=== PATIENT | male | born 1975 | race Caucasian/White ===

== ENCOUNTER 2018-07-19 01:13 | Observation (INO) ==
[2018-07-19] MEDS ORDERED: Sod Chloride 0.9% Inj 1,000 ML IV.CONT SCH (02:00)
[2018-07-19 02:42] LABS: Baso # (Auto) 0.3 th/mm3 (0.0-0.2); Baso % (Auto) 3.4 % (0.0-2.0); Eos # (Auto) 0.3 th/mm3 (0.0-0.4); Eos % (Auto) 3.2 % (0.0-4.0); Hematocrit 36.9 % (39.0-51.0); Hemoglobin 12.9 gm/dL (13.0-17.0); Lymph # (Auto) 1.9 th/mm3 (1.0-4.8); Lymph % (Auto) 20.1 % (9.0-44.0); Mean Corpuscular HGB Conc 34.9 % (32.0-36.0); Mean Corpuscular Hemoglobin 37.3 pg (27.0-34.0); Mean Corpuscular Volume 106.7 fL (80.0-100.0); Mean Platelet Volume 11.1 fL (7.0-11.0); Mono # (Auto) 1.4 th/mm3 (0.0-0.9); Mono % (Auto) 14.6 % (0.0-8.0); Neut # (Auto) 5.5 th/mm3 (1.8-7.7); Neut % (Auto) 58.7 % (16.0-70.0); Platelet Count 439 th/mm3 (150-450); Red Blood Count 3.46 mil/mm3 (4.50-5.90); Red Cell Distribution Width 15.4 % (11.6-17.2); White Blood Count 9.4 th/mm3 (4.0-11.0)
[2018-07-19 02:48] LABS: Activated Partial Thrombo Time 36.3 sec (23.4-31.7); INR 1.4 Ratio; Prothrombin Time 14.5 sec (9.8-11.6)
[2018-07-19 02:51] LABS: Alanine Aminotransferase 54 U/L (12-78); Albumin 2.9 g/dL (3.4-5.0); Anion Gap 7 meq/L (5-15); Aspartate Aminotransferase 53 U/L (15-37); Blood Urea Nitrogen 14 mg/dL (7-18); Calcium 8.4 mg/dL (8.5-10.1); Carbon Dioxide 26.3 meq/L (21.0-32.0); Chloride 108 meq/L (98-107); Glomerular Filtration Rate 72 mL/min (>89); Glucose,Random 104 mg/dL (74-106); Lipase 215 U/L (73-393); Magnesium 1.8 mg/dL (1.5-2.5); Potassium 3.9 meq/L (3.5-5.1); Sodium 141 meq/L (136-145)
--- NOTE | 2018-07-19 02:53 | ED ---
HPI General Chief complaint: GI Bleed Stated complaint: bleeding Time Seen by Provider: 07/19/18 01:41 Source: patient Limitations: no limitations History of Present Illness HPI narrative: The patient is a 43 year old male who presents to the [facility] emergency department with a history of moving his bowels earlier today and noticing blood in his stool. The patient reports that he is currently anticoagulated on Xarelto due to a recent diagnosis of pulmonary embolism. He was told that if he noticed any bleeding he should report to the emergency department. He reports that he had one other bowel movement just prior to arrival and there seemed to be more blood and that bowel movement, therefore he decided to come in for evaluation. He denies having any abdominal pain. He denies having any lightheaded sensation or shortness of breath. He reports that his stool was somewhat hard earlier. He denies having any rectal pain currently. He denies having any rectal swelling or hemorrhoids that he is noticed. 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 He reports that he has not drank any alcohol since he was discharged from the hospital. He reports that earlier in the day he did have one episode of vomiting, however he denies having any nausea or vomiting since then. He denies having any blood in his emesis. He denies having any hematuria. On review of systems otherwise, he denies having any known recent fevers, cough, congestion, neck pain, other urinary symptoms, or neurologic symptoms. Related Data Home Medications Medication Instructions Recorded Confirmed rivaroxaban [Xarelto] 15 mg PO DAILY 07/19/18 07/19/18 Previous Rx's Medication Instructions Recorded metoprolol tartrate 12.5 mg PO BID #60 tab 07/15/18 pantoprazole 40 mg PO BID #60 tab 07/15/18 Allergies Allergy/AdvReac Type Severity Reaction Status Date / Time phenobarbital Allergy Unknown to Verified 07/19/18 01:31 patient. Review of Systems ROS: all other systems reviewed are negative [facility] Medical History Medical History GERD (gastroesophageal reflux disease) (Acute) Hypertension (Acute) Pulmonary embolism (Acute) Surgical History Surgical History H/O hernia repair (Acute) History of kidney surgery (Acute) H/O splenectomy (Acute) S/P appy (Acute) Family History Family History Mother Diabetes mellitus Father Healthy adult Social History Social History Substance History: No History of Abuse Second Hand Smoke Exposure: Yes Smoking Status: Current every day smoker Tobacco Type: Cigarettes How Often Do You Have a Drink Containing Alcohol: Monthly or less Recent Travel in [facility] within the Last 8 Weeks: No Recent Out of Country Travel within the Last 8 Weeks: No Immunization History Tetanus Immunization: Unsure Exam Const General: cooperative, no acute distress and well developed Nutritional Appearance: well nourished Orientation: alert, awake and oriented x3 HENMT Head: normocephalic and atraumatic Nose: no nasal discharge and no epistaxis Mouth: moist mucous membranes Throat: posterior oropharynx normal and uvula midline Eyes Sclera: normal sclerae Pupils: PERRL Neck Neck: no meningeal signs, trachea midline and no JVD Resp Effort & Inspection: no use of accessory muscles Auscultation: clear to auscultation bilaterally Cardio Rate: regular rate Rhythm: regular rhythm Heart Sounds: no murmurs GI Inspection: non-distended Palpation: soft, no hepatosplenomegaly, no guarding, not rigid and nontender Auscultation: normal bowel sounds Rectal Exam: visual inspection normal (No hemorrhoid or anal fissure noted.), heme positive stool and No tenderness Back/Spine/Pelvis Back: no CVA tenderness Skin General: dry skin (warm) Neuro General: alert, awake, oriented x3 and other (Grossly nonfocal) Speech: speech normal Motor: no movement abnormalities noted Extrem General: normal to inspection, no calf tenderness, no clubbing, no cyanosis and no edema Psych Mood: congruent mood Affect: normal affect Judgment: judgment good Course Initial Documented Vital Signs Temperature 98.3 F 07/19/18 01:27 Pulse Rate 95 H 07/19/18 01:27 Respiratory Rate 16 07/19/18 01:27 Blood Pressure 146/85 H 07/19/18 01:27 Pulse Oximetry 98 07/19/18 01:27 Last Documented Vital Signs Temperature 98.4 F 07/19/18 16:07 Pulse Rate 62 07/19/18 16:07 Respiratory Rate 18 07/19/18 16:07 Blood Pressure 138/83 07/19/18 16:07 Pulse Oximetry 97 07/19/18 16:07 Medical Decision Making MDM Narrative Medical decision making narrative: During the course of the patient's emergency department visit, the patient's history, examination, and differential diagnosis were reviewed with the patient. The patient was placed on a library monitor with oximetry and frequent blood pressure monitoring. The patient had IV access obtained and blood work sent for analysis. A diagnostic evaluation was started regarding the patient's reported bright red blood per rectum. The patient was initially provided normal saline IV fluids at 125 mL/h. The patient's diagnostic studies are remarkable for a white count of 9.4, hemoglobin 12.9 which is stable compared to his last hemoglobin of 12.8, platelets 439 with 14.6 monocytes, PT is 14.5, INR 1.4, PTT 36.3, chemistries remarkable for a chloride of 108, GFR of 72, calcium 8.4, AST 53, ammonia levels within normal limits at 13, albumin 2.9, lipase within normal limits. The patient had a Hemoccult of the stool that was Hemoccult positive. The patient's case including history, pertinent physical examination findings, and laboratory studies were discussed with Dr. Garcia. It was [facility] The patient's results were discussed with the patient, including the plan of care. I explained that further testing and/ or monitoring is indicated based on the patient's history, examination, and/ or laboratory findings. Therefore, I recommended admission for additional evaluation. The patient expressed understanding and was agreeable with this plan. The patient was admitted to the hospital in guarded condition and sent to a bed under the care of the [facility] service. Medical Screen Exam Complete: Yes Emergency Medical Condition: Yes Differential Diagnosis Differential Diagnosis: Hemorrhoidal bleed, versus anal fissure, versus diverticulosis, versus variceal bleed, versus hemorrhagic esophagitis, versus peptic ulcer bleed, versus AVM Medical Records Medical records reviewed: Yes I reviewed the patient's medical records. Lab Data Lab results reviewed: Yes I reviewed the patient's lab results. Result diagrams: 07/19/18 18:39 07/19/18 02:25 Lab Results 07/19/18 07/19/18 07/19/18 Range/Units 02:25 02:25 02:25 WBC 9.4 (4.0-11.0) th/mm3 RBC 3.46 L (4.50-5.90) mil/mm3 Hgb 12.9 L (13.0-17.0) gm/dL Hct 36.9 L (39.0-51.0) % MCV 106.7 H (80.0-100.0) fL MCH 37.3 H (27.0-34.0) pg MCHC 34.9 (32.0-36.0) % RDW 15.4 (11.6-17.2) % Plt Count 439 D (150-450) th/mm3 MPV 11.1 H (7.0-11.0) fL Neut % (Auto) 58.7 (16.0-70.0) % Lymph % (Auto) 20.1 (9.0-44.0) % Stone % (Auto) 14.6 H (0.0-8.0) % Eos % (Auto) 3.2 (0.0-4.0) % Baso % (Auto) 3.4 H (0.0-2.0) % Neut # (Auto) 5.5 (1.8-7.7) th/mm3 Lymph # (Auto) 1.9 (1.0-4.8) th/mm3 Stone # (Auto) 1.4 H (0.0-0.9) th/mm3 Eos # (Auto) 0.3 (0.0-0.4) th/mm3 Baso # (Auto) 0.3 H (0.0-0.2) th/mm3 WBC Differential . Differential Comment Auto diff final PT 14.5 H (9.8-11.6) sec INR 1.4 Ratio APTT 36.3 H (23.4-31.7) sec Sodium 141 (136-145) meq/L Potassium 3.9 (3.5-5.1) meq/L Chloride 108 H (98-107) meq/L Carbon Dioxide 26.3 (21.0-32.0) meq/L Anion Gap 7 (5-15) meq/L BUN 14 (7-18) mg/dL Creatinine 1.11 (0.60-1.30) mg/dL Estimated GFR 72 L (>89) mL/min Random Glucose 104 (74-106) mg/dL Calcium 8.4 L (8.5-10.1) mg/dL Magnesium 1.8 (1.5-2.5) mg/dL Total Bilirubin 1.1 H (0.2-1.0) mg/dL AST 53 H (15-37) U/L ALT 54 (12-78) U/L Alkaline Phosphatase 110 (45-117) U/L Ammonia (11-32) mcmol/L Troponin I Less than 0.02 L (0.02-0.05) ng/mL Total Protein 7.4 D (6.4-8.2) g/dL Albumin 2.9 L (3.4-5.0) g/dL Lipase 215 (73-393) U/L Blood Type Antibody Screen 07/19/18 07/19/18 07/19/18 Range/Units 02:25 02:25 11:51 WBC (4.0-11.0) th/mm3 RBC (4.50-5.90) mil/mm3 Hgb 11.9 L (13.0-17.0) gm/dL Hct (39.0-51.0) % MCV (80.0-100.0) fL MCH (27.0-34.0) pg MCHC (32.0-36.0) % RDW (11.6-17.2) % Plt Count (150-450) th/mm3 MPV (7.0-11.0) fL Neut % (Auto) (16.0-70.0) % Lymph % (Auto) (9.0-44.0) % Stone % (Auto) (0.0-8.0) % Eos % (Auto) (0.0-4.0) % Baso % (Auto) (0.0-2.0) % Neut # (Auto) (1.8-7.7) th/mm3 Lymph # (Auto) (1.0-4.8) th/mm3 Stone # (Auto) (0.0-0.9) th/mm3 Eos # (Auto) (0.0-0.4) th/mm3 Baso # (Auto) (0.0-0.2) th/mm3 WBC Differential Differential Comment PT (9.8-11.6) sec INR Ratio APTT (23.4-31.7) sec Sodium (136-145) meq/L Potassium (3.5-5.1) meq/L Chloride (98-107) meq/L Carbon Dioxide (21.0-32.0) meq/L Anion Gap (5-15) meq/L BUN (7-18) mg/dL Creatinine (0.60-1.30) mg/dL Estimated GFR (>89) mL/min Random Glucose (74-106) mg/dL Calcium (8.5-10.1) mg/dL Magnesium (1.5-2.5) mg/dL Total Bilirubin (0.2-1.0) mg/dL AST (15-37) U/L ALT (12-78) U/L Alkaline Phosphatase (45-117) U/L Ammonia 13 (11-32) mcmol/L Troponin I (0.02-0.05) ng/mL Total Protein (6.4-8.2) g/dL Albumin (3.4-5.0) g/dL Lipase (73-393) U/L Blood Type A Negative Antibody Screen Negative 07/19/18 07/19/18 07/19/18 Range/Units 11:51 15:01 18:39 WBC (4.0-11.0) th/mm3 RBC (4.50-5.90) mil/mm3 Hgb 11.9 L 12.5 L 12.2 L (13.0-17.0) gm/dL Hct 34.5 L 36.0 L (39.0-51.0) % MCV (80.0-100.0) fL MCH (27.0-34.0) pg MCHC (32.0-36.0) % RDW (11.6-17.2) % Plt Count (150-450) th/mm3 MPV (7.0-11.0) fL Neut % (Auto) (16.0-70.0) % Lymph % (Auto) (9.0-44.0) % Stone % (Auto) (0.0-8.0) % Eos % (Auto) (0.0-4.0) % Baso % (Auto) (0.0-2.0) % Neut # (Auto) (1.8-7.7) th/mm3 Lymph # (Auto) (1.0-4.8) th/mm3 Stone # (Auto) (0.0-0.9) th/mm3 Eos # (Auto) (0.0-0.4) th/mm3 Baso # (Auto) (0.0-0.2) th/mm3 WBC Differential Differential Comment PT (9.8-11.6) sec INR Ratio APTT (23.4-31.7) sec Sodium (136-145) meq/L Potassium (3.5-5.1) meq/L Chloride (98-107) meq/L Carbon Dioxide (21.0-32.0) meq/L Anion Gap (5-15) meq/L BUN (7-18) mg/dL Creatinine (0.60-1.30) mg/dL Estimated GFR (>89) mL/min Random Glucose (74-106) mg/dL Calcium (8.5-10.1) mg/dL Magnesium (1.5-2.5) mg/dL Total Bilirubin (0.2-1.0) mg/dL AST (15-37) U/L ALT (12-78) U/L Alkaline Phosphatase (45-117) U/L Ammonia (11-32) mcmol/L Troponin I (0.02-0.05) ng/mL Total Protein (6.4-8.2) g/dL Albumin (3.4-5.0) g/dL Lipase (73-393) U/L Blood Type Antibody Screen Discharge Plan Discharge Disposition Patient Disposition: ED Admit(ED Internal Use Only) Discharge Order Discharge Orders: ED Use Only Admit Order (Routine); Ordered 07/19/18 Ordered By: Desire Chan Discharge Details Diagnosis: GI bleed Physicians Team ED Provider: Desire Chan Primary Care Provider: Primary Care Rhianna,Claudia Attending Provider: Agapito Gutierrez Other Providers: Hussain Ha V Discharge Interventions Interventions: ED Discharge Assessment Last Done: 07/19/18 07:34 Status ED Status: Left Department Discharge Information Discharge Date/Time: 07/19/18 07:30
[2018-07-19 02:55] LABS: Alkaline Phosphatase 110 U/L (45-117); Total Protein 7.4 g/dL (6.4-8.2)
[2018-07-19] MEDS ORDERED: Pantoprazole Inj 80 MG in Sodium Chlor 0.9% Inj 35 ML IV.SIG ONE (03:53)
[2018-07-19] MEDS ORDERED: Pantoprazole Inj 80 MG in Sodium Chlor 0.9% Inj 100 ML IV.CONT SCH (04:00)
[2018-07-19] MEDS ORDERED: Acetaminophen 325 MG Tablet PO PRN (04:17)
[2018-07-19] MEDS ORDERED: Bisacodyl 10 MG Supp RECTAL PRN (04:17)
[2018-07-19] MEDS: Sod Chloride 0.9% Inj 1,000 ML IV.CONT SCH ×2 (05:12→17:10)
--- NOTE | 2018-07-19 06:57 | P.HPIM ---
History of Present Illness Primary Care Physician: No Primary Care Physician Chief Complaint: Rectal bleeding History of Present Illness: 43-year-old male with a history of traumatic splenectomy, 7 beer per day drinker, alcohol induced liver injury with small esophageal varices seen during last admission, smoker [id number] history, recently diagnosed with atrial fibrillation as well as acute pulmonary embolism on 07/05, discharged on 07/15 on Xarelto. Patient presents today with a 1 day history of several episodes of bright red blood per rectum. Patient says he is otherwise feeling all right. He denies any history of hemorrhoids in the past. Denies any abdominal.. Denies nausea or vomiting. Patient is taking his Xarelto as directed with most recent dose on 07/18. Review of Systems Review of Systems: all other systems reviewed are negative [facility] Medical History Medical History GERD (gastroesophageal reflux disease) (Acute) Hypertension (Acute) Pulmonary embolism (Acute) Surgical History Surgical History H/O hernia repair (Acute) History of kidney surgery (Acute) H/O splenectomy (Acute) S/P appy (Acute) Family History Family History Mother Diabetes mellitus Father Healthy adult Social History Social History Substance History: No History of Abuse Second Hand Smoke Exposure: Yes Smoking Status: Current every day smoker Tobacco Type: Cigarettes How Often Do You Have a Drink Containing Alcohol: Monthly or less Recent Travel in [facility] within the Last 8 Weeks: No Recent Out of Country Travel within the Last 8 Weeks: No Immunization History Tetanus Immunization: Unsure Medications and Allergies Allergies Allergy/AdvReac Type Severity Reaction Status Date / Time phenobarbital Allergy Unknown to Verified 07/19/18 01:31 patient. Home Medications Medication Instructions Recorded Confirmed Type rivaroxaban [Xarelto] 15 mg PO DAILY 07/19/18 07/19/18 History Active Medications: Active Medications Acetaminophen (Tylenol) 650 mg PO Q4H PRN PRN Reason: Temp > 100.4 Al Hydroxide/Mg Hydroxide (Milk Of Magnesia Liq) 30 ml PO Q12H PRN PRN Reason: Mild Constipation Bisacodyl (Dulcolax Supp) 10 mg RECTAL DAILY PRN PRN Reason: SEVERE CONSITIPATION Pantoprazole Sodium 80 mg/ (Sodium Chloride) 100 mls @ 10 mls/hr IV.CONT CONT [facility] Last Admin: 07/19/18 04:16 Dose: 10 mls/hr Sodium Chloride (Ns Inj) 1,000 mls @ 100 mls/hr IV.CONT .Q10H [facility] Last Admin: 07/19/18 05:12 Dose: 100 mls/hr Lactulose (Lactulose Liq) 30 ml PO DAILY PRN PRN Reason: SEVERE CONSITIPATION Ondansetron HCl (Zofran Inj) 4 mg IV.PUSH Q6H PRN PRN Reason: NAUSEA OR VOMITING Sennosides (Senokot) 17.2 mg PO Q12H PRN PRN Reason: Moderate Constipation Sodium Chloride (Ns Flush) 2 ml IV.FLUSH PRN PRN PRN Reason: FLUSH AFTER USING IV ACCESS Sodium Chloride (Ns Flush) 2 ml IV.FLUSH BID WARREN Sodium Chloride (Ns Flush) 2 ml IV.FLUSH PRN PRN PRN Reason: FLUSH AFTER USING IV ACCESS Physical Exam Vital signs: Vital Signs 07/19/18 01:27 07/19/18 01:31 07/19/18 02:02 Temperature 98.3 F Pulse Rate 95 H 99 H Respiratory Rate 16 20 Blood Pressure 146/85 H 130/79 Pulse Oximetry 98 99 98 07/19/18 05:11 07/19/18 05:31 Temperature 98.2 F Pulse Rate 65 Respiratory Rate 18 20 Blood Pressure 117/64 Pulse Oximetry 98 Intake & Output 07/18/18 07/18/18 07/19/18 06:59 18:59 06:59 Intake Total 1035 / 1035 Balance 1035 / 1035 Weight 104.326 kg Intake: IV 1035 / 1035 NS Inj 1,000 ML @ 125 mls/hr IV 1000 / 1000 .CONT .Q8H [facility] Rx#:[id number] Protonix Inj 80 MG In NS Inj 35 35 / 35 ML @ 420 mls/hr IV.SIG BOLUS ONE Rx#:[id number] Narrative: GENERAL: Patient lying in bed. Appears comfortable. Alert and oriented x3. SKIN: Warm and dry. HEAD: Atraumatic. Normocephalic. EYES: Pupils equal and round. No scleral icterus. No injection or drainage. ENT: No nasal bleeding or discharge. Mucous membranes pink and moist. NECK: Trachea midline. No JVD. CARDIOVASCULAR: Regular rate and rhythm. RESPIRATORY: No accessory muscle use. Clear to auscultation. Breath sounds equal bilaterally. GASTROINTESTINAL: Abdomen soft, non-tender, nondistended. Hepatic and splenic margins not palpable. MUSCULOSKELETAL: Extremities without clubbing, cyanosis, or edema. No obvious deformities. NEUROLOGICAL: Awake and alert. No obvious cranial nerve deficits. Motor grossly within normal limits. Five out of 5 muscle strength in the arms and legs. Normal speech. PSYCHIATRIC: Appropriate mood and affect; insight and judgment normal. Results Labs CBC & Chem 7: 07/19/18 02:25 07/19/18 02:25 Caprini VTE Risk Assessment Caparabella VTE Risk Assessment: Moderate/High Risk (score >= 2) VTE Pharmacological Exception Reason: Active bleeding Caprini Risk Assessment Model: Point Value = 1 Point Value = 2 Point Value = 3 Point Value = 5 Age 41-60 Minor surgery BMI > 25 kg/m2 Swollen legs Varicose veins or History of unexplained or recurrent spontaneous Oral contraceptives or hormone replacement Sepsis (< 1 month) Serious lung disease, including pneumonia (< 1 month) Abnormal pulmonary function Acute myocardial infarction Congestive heart failure (< 1 month) History of inflammatory bowel disease Medical patient at bed rest Age 61-74 Arthroscopic surgery Major open surgery (> 45 min) Laparoscopic surgery (> 45 min) Malignancy Confined to bed (> 72 hours) Immobilizing plaster cast Central venous access Age >= 75 History of VTE Family history of VTE Factor V Leiden Prothrombin [id number] Lupus anticoagulant Anticardiolipin antibodies Elevated serum homocysteine Heparin-induced thrombocytopenia Other congenital or acquired thrombophilia Stroke (< 1 month) Elective arthroplasty Hip, pelvis, or leg fracture Acute spinal cord injury (< 1 month) Prophylaxis Regimen: Total Risk Factor Score Risk Level Prophylaxis Regimen 0-1 Low Early ambulation 2 Moderate Order ONE of the following: *Sequential Compression Device (SCD) *Heparin 5000 units SQ BID 3-4 Higher Order ONE of the following medications: *Heparin 5000 units SQ TID *Enoxaparin/Lovenox 40 mg SQ daily (WT < 150 kg, CrCl > 30 mL/min) *Enoxaparin/Lovenox 30 mg SQ daily (WT < 150 kg, CrCl > 10-29 mL/min) *Enoxaparin/Lovenox 30 mg SQ BID (WT < 150 kg, CrCl > 30 mL/min) AND/OR *Sequential Compression Device (SCD) 5 or more Highest Order ONE of the following medications: *Heparin 5000 units SQ TID (Preferred with Epidurals) *Enoxaparin/Lovenox 40 mg SQ daily (WT < 150 kg, CrCl > 30 mL/min) *Enoxaparin/Lovenox 30 mg SQ daily (WT < 150 kg, CrCl > 10-29 mL/min) *Enoxaparin/Lovenox 30 mg SQ BID (WT < 150 kg, CrCl > 30 mL/min) AND *Sequential Compression Device (SCD) Assessment and Plan Plan //Acute lower GI bleed. //History of esophageal varices. //Alcoholic cirrhosis. -Patient denies any alcohol use since before admission. -Hemoglobin stable from last admission 12.9. Patient started on PPI drip in the ER. Trend hemoglobin. Consult GI. Suspect this is hemorrhoidal bleed. //Recent pulmonary embolism, as well as paroxysmal atrial fibrillation. Will hold off on Xarelto for now. Will need to restart within the next 48 hours due to recent diagnosis of PE. //Paroxysmal atrial fibrillation. Continue metoprolol. Hold off on anticoagulation. //Tobacco abuse. Cessation counseling provided. - Discussed Condition With: Patient, nurse, ED physician.
--- NOTE | 2018-07-19 09:58 | P.CONGI ---
History of Present Illness Consult date: 07/19/18 Consult reason: GI bleed on Xarelto Bright red blood per rectum Chief complaint: GI Bleed on Xarelto History of Present Illness: Patient is a pleasant 43-year-old male with past medical history significant for traumatic splenectomy, GERD, hypertension and pulmonary embolism. Patient also has medical history of atrial fibrillation and esophageal varices. Surgical history includes hernia repair, splenectomy and appendectomy. Patient presented to [facility] emergency room with report of 1 day history of 7 episodes of bright red blood per rectum. Patient states that he has no histories of hemorrhoids. Denies abdominal pain nausea vomiting. Patient denies diarrhea or constipation. States he has a soft stool daily. Of note, patient recently discharged home on 07/15/2018 on Xarelto for atrial fibrillation as well as acute pulmonary embolism diagnosed on 07/05/2018. Upon arrival, hemoglobin 12.9 hematocrit 36.9. Upon consultation, patient endorses smoking half a pack of cigarettes per day and states he drinks 7-8 beers daily but quit last week. Xarelto currently on hold. Our service has been consulted to evaluate patient for lower GI bleeding. Patient denies past history of having had colonoscopy but does endorse history of EGD revealing esophageal varices. Last EGD 07/06/2018 revealed class a esophagitis with portal hypertensive gastropathy. Review of Systems All other systems reviewed negative except as stated in HPI PMFSH - History History Provided By: Patient - Medical History Medical History: Medical History (Last Reviewed 07/19/18 @ 06:53 [address] Garcia MD) GERD (gastroesophageal reflux disease) Hypertension Pulmonary embolism - Surgical History Surgical History: Surgical History (Last Reviewed 07/19/18 @ 06:[address] Garcia MD) H/O hernia repair History of kidney surgery H/O splenectomy S/P appy - Family History Family History: Family History (Last Reviewed 07/19/18 @ 02:49 by Desire Chan MD) Mother Diabetes mellitus Father Healthy adult - Tobacco History Second Hand Smoke Exposure: Yes Tobacco Use In Past 30 Days: Yes Smoking Status: Current every day smoker Tobacco Type: Cigarettes - Alcohol History How Often Do You Have a Drink Containing Alcohol: Monthly or less - Substance Use History Substance History: No History of Abuse - Travel History Recent Travel in the [place] Within the Last 8 Weeks: No Recent Travel Out of the Country Within the Last 8 Weeks: No - Immunization History Tetanus Immunization: Unsure Medications and Allergies Active Medications: Active Medications Acetaminophen (Tylenol) 650 mg PO Q4H PRN PRN Reason: Temp > 100.4 Al Hydroxide/Mg Hydroxide (Milk Of Magnesia Liq) 30 ml PO Q12H PRN PRN Reason: Mild Constipation Bisacodyl (Dulcolax Supp) 10 mg RECTAL DAILY PRN PRN Reason: SEVERE CONSITIPATION Pantoprazole Sodium 80 mg/ (Sodium Chloride) 100 mls @ 10 mls/hr IV.CONT [facility] Last Admin: 07/19/18 04:16 Dose: 10 mls/hr Sodium Chloride (Ns Inj) 1,000 mls @ 100 mls/hr IV.CONT .Q10H [facility] Last Admin: 07/19/18 05:12 Dose: 100 mls/hr Lactulose (Lactulose Liq) 30 ml PO DAILY PRN PRN Reason: SEVERE CONSITIPATION Ondansetron HCl (Zofran Inj) 4 mg IV.PUSH Q6H PRN PRN Reason: NAUSEA OR VOMITING Sennosides (Senokot) 17.2 mg PO Q12H PRN PRN Reason: Moderate Constipation Sodium Chloride (Ns Flush) 2 ml IV.FLUSH PRN PRN PRN Reason: FLUSH AFTER USING IV ACCESS Sodium Chloride (Ns Flush) 2 ml IV.FLUSH BID WARREN Sodium Chloride (Ns Flush) 2 ml IV.FLUSH PRN PRN PRN Reason: FLUSH AFTER USING IV ACCESS Allergies Allergy/AdvReac Type Severity Reaction Status Date / Time phenobarbital Allergy Unknown to Verified 07/19/18 01:31 patient. Home Medications Medication Instructions Recorded Confirmed Type rivaroxaban [Xarelto] 15 mg PO DAILY 07/19/18 07/19/18 History Exam Vital signs: Vital Signs 07/19/18 01:27 07/19/18 01:31 07/19/18 02:02 Temperature 98.3 F Pulse Rate 95 H 99 H Respiratory Rate 16 20 Blood Pressure 146/85 H 130/79 Pulse Oximetry 98 99 98 07/19/18 05:11 07/19/18 05:31 07/19/18 07:00 Temperature 98.2 F Pulse Rate 65 66 Respiratory Rate 18 20 24 Blood Pressure 117/64 107/53 L Pulse Oximetry 98 07/19/18 08:00 Temperature 98.6 F Pulse Rate 62 Respiratory Rate 20 Blood Pressure 128/67 Pulse Oximetry 96 Intake & Output 07/18/18 07/19/18 07/19/18 18:59 06:59 18:59 Intake Total 1035 / 1035 Balance 1035 / 1035 Weight 104.326 kg Intake: IV 1035 / 1035 NS Inj 1,000 ML @ 125 mls/hr IV 1000 / 1000 .CONT .Q8H W[facility]EN Rx#:[id number] Protonix Inj 80 MG In NS Inj 35 35 / 35 ML @ 420 mls/hr IV.SIG BOLUS ONE Rx#:[id number] - Constitutional no acute distress, cooperative - Routine HEENT Exam Head: Present: normocephalic - Routine Neck Exam Present: supple, trachea midline - Routine Respiratory Exam Present: CTA bilaterally. Absent: accessory muscle use - Routine Cardiovascular Exam Present: RRR, S1, S2 - Routine Abdominal Exam Present: soft, normoactive bowel sounds. Absent: tenderness, distended - Routine Extremities Exam Absent: edema - Routine Skin Exam Present: dry, warm - Routine Neurological Exam Present: alert, oriented X3 Results - Labs CBC & Chem 7: 07/19/18 18:39 07/19/18 02:25 Labs: Laboratory Results - last 24 hr 07/19/18 07/19/18 07/19/18 02:25 02:25 02:25 WBC 9.4 RBC 3.46 L Hgb 12.9 L Hct 36.9 L MCV 106.7 H MCH 37.3 H MCHC 34.9 RDW 15.4 Plt Count 439 D MPV 11.1 H Neut % (Auto) 58.7 Lymph % (Auto) 20.1 [place] % (Auto) 14.6 H Eos % (Auto) 3.2 Baso % (Auto) 3.4 H Neut # (Auto) 5.5 Lymph # (Auto) 1.9 [place] # (Auto) 1.4 H Eos # (Auto) 0.3 Baso # (Auto) 0.3 H WBC Differential . Differential Comment Auto diff final PT 14.5 H INR 1.4 APTT 36.3 H Sodium 141 Potassium 3.9 Chloride 108 H Carbon Dioxide 26.3 Anion Gap 7 BUN 14 Creatinine 1.11 Estimated GFR 72 L Random Glucose 104 Calcium 8.4 L Magnesium 1.8 Total Bilirubin 1.1 H AST 53 H ALT 54 Alkaline Phosphatase 110 Ammonia Troponin I Less than 0.02 L Total Protein 7.4 D Albumin 2.9 L Lipase 215 Blood Type Antibody Screen 07/19/18 07/19/18 02:25 02:25 WBC RBC Hgb Hct MCV MCH MCHC RDW Plt Count MPV Neut % (Auto) Lymph % (Auto) [place] % (Auto) Eos % (Auto) Baso % (Auto) Neut # (Auto) Lymph # (Auto) [place] # (Auto) Eos # (Auto) Baso # (Auto) WBC Differential Differential Comment PT INR APTT Sodium Potassium Chloride Carbon Dioxide Anion Gap BUN Creatinine Estimated GFR Random Glucose Calcium Magnesium Total Bilirubin AST ALT Alkaline Phosphatase Ammonia 13 Troponin I Total Protein Albumin Lipase Blood Type A Negative Antibody Screen Negative Assessment and Plan (1) Lower GI bleed Status: Acute Code(s): K92.2 - Gastrointestinal hemorrhage, unspecified - Plan Patient is a pleasant 43-year-old male with past medical history significant for traumatic splenectomy, GERD, hypertension and pulmonary embolism. Patient also has medical history of atrial fibrillation and esophageal varices. Surgical history includes hernia repair, splenectomy and appendectomy. Patient presented to [facility] emergency room with report of 1 day history of 7 episodes of bright red blood per rectum. Patient states that he has no histories of hemorrhoids. Denies abdominal pain nausea vomiting. Patient denies diarrhea or constipation. States he has a soft stool daily. Of note, patient recently discharged home on 07/15/2018 on Xarelto for atrial fibrillation as well as acute pulmonary embolism diagnosed on 07/05/2018. Upon arrival, hemoglobin 12.9 hematocrit 36.9. Upon consultation, patient endorses smoking half a pack of cigarettes per day and states he drinks 7-8 beers daily but quit last week. Xarelto currently on hold. Our service has been consulted to evaluate patient for lower GI bleeding. Patient denies past history of having had colonoscopy but does endorse history of EGD revealing esophageal varices. Last EGD 07/06/2018 revealed class a esophagitis with portal hypertensive gastropathy. Lower GI bleed Bright red blood per rectum History of cirrhosis-alcoholic History of pulmonary embolism New onset atrial fibrillation on Xarelto Plan Diet as tolerated Monitor hemoglobin and hematocrit-serial H&H every 8x3 ordered Continue PPI Resume Xarelto-pulmonary embolism takes precedence over GI issue, if patient begins bleeding, will do endoscopic procedure Monitor for active bleeding Notify GI for active bleeding Consider colonoscopy for drop in hemoglobin and hematocrit Supportive care Further recommendations to follow This patient has been seen by myself and Dr. Ha and this note is written on his behalf - Attending Attestation Dr. Ha
--- NOTE | 2018-07-19 14:02 | P.PNIM ---
Patient states no abdominal pain and no bowel movement since coming into the hospital. Xarelto has been on hold. GI has evaluated patient and recommended serial hemoglobin hematocrit and consideration for colonoscopy if significant drop in hemoglobin and to continue to monitor for any active bleeding. Continue supportive care.
[2018-07-19 14:04] LABS: Hemoglobin 11.9 gm/dL (13.0-17.0)
[2018-07-19 14:05] LABS: Hematocrit 34.5 % (39.0-51.0)
[2018-07-19 19:12] LABS: Hemoglobin 12.2 gm/dL (13.0-17.0)
[2018-07-19] MEDS: Rivaroxaban 15 MG Tablet PO SCH (20:16)
[2018-07-20] MEDS: Sod Chloride 0.9% Inj 1,000 ML IV.CONT SCH ×2 (04:33→10:40)
[2018-07-20 06:56] LABS: Baso # (Auto) 0.2 th/mm3 (0.0-0.2); Baso % (Auto) 3.2 % (0.0-2.0); Eos # (Auto) 0.5 th/mm3 (0.0-0.4); Eos % (Auto) 6.7 % (0.0-4.0); Hematocrit 34.3 % (39.0-51.0); Hemoglobin 11.7 gm/dL (13.0-17.0); Lymph # (Auto) 2.3 th/mm3 (1.0-4.8); Lymph % (Auto) 30.9 % (9.0-44.0); Mean Corpuscular HGB Conc 34.2 % (32.0-36.0); Mean Corpuscular Hemoglobin 36.8 pg (27.0-34.0); Mean Corpuscular Volume 107.6 fL (80.0-100.0); Mean Platelet Volume 11.2 fL (7.0-11.0); Mono # (Auto) 1.2 th/mm3 (0.0-0.9); Mono % (Auto) 16.1 % (0.0-8.0); Neut # (Auto) 3.2 th/mm3 (1.8-7.7); Neut % (Auto) 43.1 % (16.0-70.0); Platelet Count 404 th/mm3 (150-450); Red Blood Count 3.19 mil/mm3 (4.50-5.90); Red Cell Distribution Width 15.6 % (11.6-17.2); White Blood Count 7.3 th/mm3 (4.0-11.0)
[2018-07-20 07:00] LABS: INR 1.2 Ratio; Prothrombin Time 12.6 sec (9.8-11.6)
[2018-07-20 07:20] VITALS: RESP 18
[2018-07-20 07:20] LABS: Albumin 2.3 g/dL (3.4-5.0); Anion Gap 9 meq/L (5-15); Aspartate Aminotransferase 41 U/L (15-37); Blood Urea Nitrogen 4 mg/dL (7-18); Calcium 8.4 mg/dL (8.5-10.1); Chloride 111 meq/L (98-107); Glomerular Filtration Rate Greater Than 89 mL/min (>89); Glucose,Random 66 mg/dL (74-106); Potassium 3.4 meq/L (3.5-5.1); Sodium 143 meq/L (136-145)
[2018-07-20 07:24] LABS: Alanine Aminotransferase 41 U/L (12-78); Alkaline Phosphatase 83 U/L (45-117)
[2018-07-20] MEDS: Rivaroxaban 15 MG Tablet PO SCH (08:04)
--- NOTE | 2018-07-20 10:41 | P.PNGI ---
Subjective Interval history: Patient is laying in bed comfortably No nausea no vomiting no abdominal pain however patient did not have any bowel movement No hematemesis Wanted his diet to be advanced Physical Exam Vital signs: Vital Signs 07/19/18 11:20 07/19/18 16:07 07/19/18 20:00 Temperature 98.4 F 98.4 F Pulse Rate 62 62 50 L Respiratory Rate 20 18 16 Blood Pressure 115/79 138/83 134/80 Pulse Oximetry 97 97 98 07/19/18 21:16 07/20/18 00:00 07/20/18 04:00 Temperature Pulse Rate 45 L 64 Respiratory Rate 16 16 Blood Pressure 123/82 131/73 Pulse Oximetry 99 98 98 07/20/18 07:18 Temperature 97.9 F Pulse Rate 75 Respiratory Rate 18 Blood Pressure 114/57 L Pulse Oximetry 95 Intake & Output 07/19/18 07/20/18 07/20/18 18:59 06:59 18:59 Intake Total 1100 / 1100 1000 / 1000 Balance 1100 / 1100 1000 / 1000 Weight 104.355 kg Intake: IV 1100 / 1100 1000 / 1000 Protonix Inj 80 MG In NS Inj 100 / 100 100 ML @ 10 mls/hr IV.CONT CONT WARREN Rx#:[id number] NS Inj 1,000 ML @ 100 mls/hr IV 1000 / 1000 1000 / 1000 .CONT .Q10H W[facility]EN Rx#:[id number] Other: # Voids 2 Date of Last Bowel Movement 07/18/18 07/18/18 Weight On Admission 104.355 kg - Constitutional no acute distress - Routine HEENT Exam Head: Present: normocephalic - Routine Neck Exam Present: supple - Routine Respiratory Exam Present: CTA bilaterally - Routine Cardiovascular Exam Present: RRR, S1, S2 - Routine Abdominal Exam Present: soft, normoactive bowel sounds. Absent: tenderness, distended - Routine Extremities Exam Present: pulses intact, normal capillary refill - Routine Skin Exam Present: intact - Routine Neurological Exam Present: alert, oriented X3 Results - Labs CBC & Chem 7: 07/20/18 05:15 07/20/18 05:15 Laboratory Results - last 24 hr 07/19/18 07/19/18 07/19/18 11:51 11:51 15:01 WBC RBC Hgb 11.9 L 11.9 L 12.5 L Hct 34.5 L MCV MCH MCHC RDW Plt Count MPV Neut % (Auto) Lymph % (Auto) [place] % (Auto) Eos % (Auto) Baso % (Auto) Neut # (Auto) Lymph # (Auto) [place] # (Auto) Eos # (Auto) Baso # (Auto) WBC Differential Differential Comment PT INR Sodium Potassium Chloride Carbon Dioxide Anion Gap BUN Creatinine Estimated GFR Random Glucose Calcium Total Bilirubin AST ALT Alkaline Phosphatase Total Protein Albumin 07/19/18 07/19/18 07/20/18 18:39 22:50 05:15 WBC 7.3 RBC 3.19 L Hgb 12.2 L 11.8 L 11.7 L Hct 36.0 L 34.3 L MCV 107.6 H MCH 36.8 H MCHC 34.2 RDW 15.6 Plt Count 404 MPV 11.2 H Neut % (Auto) 43.1 Lymph % (Auto) 30.9 [place] % (Auto) 16.1 H Eos % (Auto) 6.7 H Baso % (Auto) 3.2 H Neut # (Auto) 3.2 Lymph # (Auto) 2.3 [place] # (Auto) 1.2 H Eos # (Auto) 0.5 H Baso # (Auto) 0.2 WBC Differential . Differential Comment Auto diff final PT INR Sodium Potassium Chloride Carbon Dioxide Anion Gap BUN Creatinine Estimated GFR Random Glucose Calcium Total Bilirubin AST ALT Alkaline Phosphatase Total Protein Albumin 07/20/18 07/20/18 05:15 05:15 WBC RBC Hgb Hct MCV MCH MCHC RDW Plt Count MPV Neut % (Auto) Lymph % (Auto) [place] % (Auto) Eos % (Auto) Baso % (Auto) Neut # (Auto) Lymph # (Auto) [place] # (Auto) Eos # (Auto) Baso # (Auto) WBC Differential Differential Comment PT 12.6 H INR 1.2 Sodium 143 Potassium 3.4 L Chloride 111 H Carbon Dioxide 23.0 Anion Gap 9 BUN 4 L Creatinine 0.58 L Estimated GFR Greater than 89 Random Glucose 66 L Calcium 8.4 L Total Bilirubin 1.1 H AST 41 H ALT 41 Alkaline Phosphatase 83 Total Protein 6.0 L D Albumin 2.3 L D Assessment and Plan (1) Lower GI bleed Status: Acute Code(s): K92.2 - Gastrointestinal hemorrhage, unspecified (2) Hematochezia Status: Acute Code(s): K92.1 - Melena (3) ETOH abuse Status: Chronic Code(s): F10.10 - Alcohol abuse, uncomplicated - Plan Patient is a pleasant 43-year-old male with past medical history significant for traumatic splenectomy, GERD, hypertension and pulmonary embolism. Patient also has medical history of atrial fibrillation and esophageal varices. Surgical history includes hernia repair, splenectomy and appendectomy. Patient presented to [facility] emergency room with report of 1 day history of 7 episodes of bright red blood per rectum. Patient states that he has no histories of hemorrhoids. Denies abdominal pain nausea vomiting. Patient denies diarrhea or constipation. States he has a soft stool daily. Of note, patient recently discharged home on 07/15/2018 on Xarelto for atrial fibrillation as well as acute pulmonary embolism diagnosed on 07/05/2018. Upon arrival, hemoglobin 12.9 hematocrit 36.9. Upon consultation, patient endorses smoking half a pack of cigarettes per day and states he drinks 7-8 beers daily but quit last week. Xarelto currently on hold. Our service has been consulted to evaluate patient for lower GI bleeding. Patient denies past history of having had colonoscopy but does endorse history of EGD revealing esophageal varices. Last EGD 07/06/2018 revealed class a esophagitis with portal hypertensive gastropathy. Lower GI bleed Bright red blood per rectum History of cirrhosis-alcoholic History of pulmonary embolism New onset atrial fibrillation on Xarelto 07/20/2018 Assessment Hematochezia patient was on Xarelto for PE and DVT, A. fib -Patient is familiar to as was just here 2 weeks ago for nausea vomiting and had EGD done 07/06/2018 showing esophagitis class A with portal hypertensive gastropathy. EtOH abuse Alcoholic cirrhosis with transaminitis Labs today hemoglobin 11.7 hematocrit 34.3 Plan Full liquid diet can advance to diet as tolerated if no nausea vomiting and no blood in the stool Okay to resume Xarelto Patient based on the hemoglobin trend, does not need colonoscopy at this time in no active lower GI bleed noted Continue PPI Patient can have colonoscopy as an outpatient Supportive care GI will signed off, reconsult as needed This patient has been seen by myself and Dr. Ha and this note is written on his behalf - Attending Attestation Dr. Ha
[2018-07-20 11:19] VITALS: BP 123/78; PULSE 64; TEMP 98.5; O2SAT 97
--- NOTE | 2018-07-20 11:43 | P.PNIM ---
Subjective Interval history: Patient reports no bowel movement overnight. No abdominal pain. Tolerating full liquids overnight. Did take Xarelto yesterday evening this morning. Physical Exam Vital signs: Vital Signs 07/19/18 16:07 07/19/18 20:00 07/19/18 21:16 Temperature 98.4 F Pulse Rate 62 50 L Respiratory Rate 18 16 Blood Pressure 138/83 134/80 Pulse Oximetry 97 98 99 07/20/18 00:00 07/20/18 04:00 07/20/18 07:18 Temperature 97.9 F Pulse Rate 45 L 64 75 Respiratory Rate 16 16 18 Blood Pressure 123/82 131/73 114/57 L Pulse Oximetry 98 98 95 07/20/18 11:16 Temperature 98.5 F Pulse Rate 64 Respiratory Rate 18 Blood Pressure 123/78 Pulse Oximetry 97 Intake & Output 07/19/18 07/20/18 07/20/18 18:59 06:59 18:59 Intake Total 1100 / 1100 1000 / 1000 600 / 600 Balance 1100 / 1100 1000 / 1000 600 / 600 Weight 104.355 kg Intake: IV 1100 / 1100 1000 / 1000 600 / 600 Protonix Inj 80 MG In NS Inj 100 / 100 100 ML @ 10 mls/hr IV.CONT CONT [facility] Rx#:[id number] NS Inj 1,000 ML @ 100 mls/hr IV 1000 / 1000 1000 / 1000 600 / 600 .CONT .Q10H [facility] Rx#:[id number] Other: # Voids 2 Date of Last Bowel Movement 07/18/18 07/18/18 Weight On Admission 104.355 kg Narrative: GENERAL: Patient lying in bed. Appears comfortable. Alert and oriented x3. CARDIOVASCULAR: Regular rate and rhythm. RESPIRATORY: No accessory muscle use. Clear to auscultation. Breath sounds equal bilaterally. GASTROINTESTINAL: Abdomen soft, non-tender, nondistended. Normoactive bowel sounds MUSCULOSKELETAL: Extremities without clubbing, cyanosis, or edema. No obvious deformities. NEUROLOGICAL: Awake and alert. Results Labs CBC & Chem 7: 07/20/18 05:15 07/20/18 05:15 Assessment and Plan (1) Lower GI bleed: Code(s): K92.2 - Gastrointestinal hemorrhage, unspecified Status: Acute (2) Hematochezia: Code(s): K92.1 - Melena Status: Acute (3) ETOH abuse: Code(s): F10.10 - Alcohol abuse, uncomplicated Status: Chronic Plan 43-year-old male with recently diagnosed atrial fibrillation, pulmonary embolism on 07/05 discharge 07/15 on Xarelto with a history of small esophageal varices presented with rectal bleeding Acute lower GI bleed with a history of esophageal varices and alcohol cirrhosis Patient denies any alcohol use before this admission Hemoglobin has remained stable from last hospitalization and overnight after restarting Xarelto. Advance to regular diet. Appreciate recommendations from GI, suspect this may be hemorrhoidal bleed Repeat hemoglobin at noon and if stable will discharge patient home with outpatient follow-up Recent pulmonary embolism as well as Paroxysmal atrial fibrillation -Xarelto has been restarted, hemoglobin remained stable. Tobacco abusecessation counseling provided Discharge patient to home if repeat hb remains stable Condition on discharge: Improved Regular Diet as tolerated Ad Tanja activity No new Rx written: Follow-up with primary care physician Return to emergency for any acute GI bleeding. Progress Note: Quality VTE Deep Vein Thrombosis/Pulmonary Embolism Present on Admission: No
[2018-07-20 13:06] LABS: Hematocrit 36.6 % (39.0-51.0); Hemoglobin 12.6 gm/dL (13.0-17.0)
== END 2018-07-20 13:47 | disposition home or self-care (01) ==
LOC: NEDA 01:13 → NEPD 01:13 → NEDH 06:55 → NEPGCP 07:43
PROVIDERS: ADMIT Family Medicine; ATTEND Family Medicine
DX: K92.2 Gastrointestinal hemorrhage, unspecified; I26.99 Other pulmonary embolism without acute cor pulmonale; F17.210 Nicotine dependence, cigarettes, uncomplicated; K76.6 Portal hypertension; Z83.3 Family history of diabetes mellitus; K70.30 Alcoholic cirrhosis of liver without ascites; K21.0 Gastro-esophageal reflux disease with esophagitis; F10.10 Alcohol abuse, uncomplicated; K31.89 Other diseases of stomach and duodenum; Z79.01 Long term (current) use of anticoagulants; Z90.49 Acquired absence of other specified parts of digestive tract; Z90.81 Acquired absence of spleen; I48.0 Paroxysmal atrial fibrillation; I10 Essential (primary) hypertension
CPT/HCPCS: 80053; 82140; 83690; 83735; 84484; 85014; 85018; 85025; 85610; 85730; 86850; 86900; 86901; 90761; 96361; 96365; 96366; 99285; C9113; G0378; J7030